=== PATIENT | male | born 1945 | race Caucasian/White ===

== ENCOUNTER 2017-11-03 12:43 | Inpatient (IN) | payer OTHER ==
[~2017-11-03] VITALS: Ht 170.2 cm; Wt 125.2 kg
[2017-11-03 13:19] LABS: BASOPHIL % 0.2 % (0-2); PLATELET COUNT 225 x10^3mcL (130-400); RED CELL DISTRIBUTION WIDTH 13.6 % (11.5-14.5)
[2017-11-03 13:30] LABS: CALCIUM 8.8 mg/dL (8.5-10.1); CARBON DIOXIDE 30.3 mmol/L (21-32); CHLORIDE SERUM 98 mmol/L (98-107); CREATININE SERUM 1.1 mg/dL (0.7-1.3); GFR1 > 60 mL/min; GLUCOSE SERUM 102 mg/dL (74-106); POTASSIUM SERUM 4.5 mmol/L (3.5-5.1); SODIUM SERUM 136 mmol/L (136-145)
[2017-11-03 13:42] LABS: ALKALINE PHOSPHATASE 111 U/L (46-116); ALT/SGPT 19 U/L (16-63); AMYLASE 39 U/L (25-115); AST/SGOT 25 U/L (15-37); BILIRUBIN TOTAL 0.54 mg/dL (0.20-1.00); LIPASE 82 IU/L (73-393); T4(THYROXINE) 7.2 ug/dL (4.7-13.3); TOTAL PROTEIN, SERUM 8.2 g/dL (6.4-8.2)
[2017-11-03 13:55] VITALS: BP 143/94
[2017-11-03 15:27] LABS: UA SPECIFIC GRAVITY 1.025 (1.005-1.035); microscopic required? YES; urine erythrocyte 2+ (NEGATIVE)
[2017-11-03 15:44] LABS: AMPHETAMINE QUAL UR NONE DETECTED (See below)
[2017-11-03 17:04] VITALS: BP 92/53
[2017-11-03] MEDS ORDERED: ASPIRIN ADULT L81 M5 PO (18:39)
[2017-11-03] MEDS ORDERED: DICLOFENAC NA 1% TOP (18:42)
[2017-11-03] MEDS ORDERED: FLUOCINOLONE 0.01% TOP (18:43)
[2017-11-03] MEDS ORDERED: MULTI-VITAMINS1 TAB PO (18:44)
[2017-11-03] MEDS ORDERED: KETOCONAZOLE2% TOP (18:44)
[2017-11-03] MEDS ORDERED: PRILOSEC OTC20 M1 PO (18:46)
[2017-11-03] MEDS ORDERED: GABAPENTIN400 M1 PO (18:46)
[2017-11-03] MEDS ORDERED: OXYCODONE HCL15 M1 PO (18:46)
[2017-11-03] MEDS ORDERED: LAMOTRIGINE25 MG PO (18:47)
[2017-11-03] MEDS ORDERED: ATORVASTATIN CA40 M1 PO (18:47)
[2017-11-03] MEDS ORDERED: ZOL100 (18:49)
[2017-11-03] MEDS ORDERED: ZOLOFT100 MG PO (18:49)
[2017-11-03] MEDS ORDERED: EVAC-U-GEN8.6 M1 PO (18:49)
[2017-11-03] MEDS ORDERED: MELOXICAM15 M1 PO (18:50)
[2017-11-03] MEDS ORDERED: HYDROXYZINE50 M1 PO (18:51)
[2017-11-03] MEDS ORDERED: CYCLOBENZAPRINE5 MG PO (18:52)
[2017-11-03] MEDS ORDERED: DITROPAN XL5 MG PO (18:52)
[2017-11-03] MEDS ORDERED: PRAZOSIN HYDROCH1 MG PO (18:53)
[2017-11-03 20:39] VITALS: BP 103/52
[2017-11-04 05:42] VITALS: BP 141/73
[2017-11-04 07:08] LABS: BASOPHIL % 0.3 % (0-2); PLATELET COUNT 210 x10^3mcL (130-400); RED CELL DISTRIBUTION WIDTH 13.6 % (11.5-14.5)
[2017-11-04 07:10] LABS: ALKALINE PHOSPHATASE 99 U/L (46-116); ALT/SGPT 25 U/L (16-63); AST/SGOT 33 U/L (15-37); BILIRUBIN TOTAL 0.61 mg/dL (0.20-1.00); CALCIUM 8.4 mg/dL (8.5-10.1); CARBON DIOXIDE 29.5 mmol/L (21-32); CHLORIDE SERUM 102 mmol/L (98-107); CREATININE SERUM 0.8 mg/dL (0.7-1.3); GFR1 > 60 mL/min; GLUCOSE SERUM 100 mg/dL (74-106); MAGNESIUM 1.8 mg/dL (1.8-2.4); PHOSPHOROUS 3.7 mg/dL (2.5-4.9); POTASSIUM SERUM 5.1 mmol/L (3.5-5.1); SODIUM SERUM 137 mmol/L (136-145); TOTAL PROTEIN, SERUM 7.7 g/dL (6.4-8.2)
[2017-11-04 07:13] LABS: ALBUMIN 2.6 g/dL (3.4-5.0)
[2017-11-04 10:04] VITALS: BP 135/76
[2017-11-04 13:02] VITALS: BP 140/80; Ht 170.2 cm; Wt 125.2 kg
[2017-11-04 17:33] VITALS: BP 146/72
[2017-11-04 20:55] VITALS: BP 137/80
[2017-11-05 05:39] VITALS: BP 138/81
[2017-11-05 06:55] LABS: BASOPHIL % 0.1 % (0-2); PLATELET COUNT 236 x10^3mcL (130-400); RED CELL DISTRIBUTION WIDTH 12.8 % (11.5-14.5)
[2017-11-05 07:00] LABS: ALKALINE PHOSPHATASE 94 U/L (46-116); ALT/SGPT 22 U/L (16-63); AST/SGOT 25 U/L (15-37); BILIRUBIN TOTAL 0.53 mg/dL (0.20-1.00); CALCIUM 8.7 mg/dL (8.5-10.1); CARBON DIOXIDE 32.5 mmol/L (21-32); CHLORIDE SERUM 100 mmol/L (98-107); GFR1 > 60 mL/min; GLUCOSE SERUM 117 mg/dL (74-106); MAGNESIUM 1.9 mg/dL (1.8-2.4); PHOSPHOROUS 2.7 mg/dL (2.5-4.9); SODIUM SERUM 137 mmol/L (136-145); TOTAL PROTEIN, SERUM 7.8 g/dL (6.4-8.2)
[2017-11-05 07:09] LABS: ALBUMIN 2.7 g/dL (3.4-5.0)
[2017-11-05 08:50] VITALS: BP 116/56
[2017-11-05 12:14] VITALS: BP 131/64
[2017-11-05 16:53] VITALS: BP 140/59
[2017-11-05 17:05] VITALS: BP 140/59
[2017-11-05 21:29] VITALS: BP 139/69
[2017-11-06 04:48] VITALS: BP 133/74
[2017-11-06 09:21] VITALS: BP 106/54
[2017-11-06 13:53] VITALS: BP 127/59
[2017-11-06 17:09] VITALS: BP 150/70
[2017-11-06 21:43] VITALS: BP 134/66
[2017-11-07 05:24] VITALS: BP 99/51
[2017-11-07 09:31] VITALS: BP 106/64
[2017-11-07 13:41] VITALS: BP 138/69
[2017-11-07 15:00] VITALS: BP 138/69
== END 2017-11-07 16:30 | DRG 871 ==
LOC: ED 12:43 → DU 16:05
PROVIDERS: Emergency Medicine; Internal Medicine Pulmonary Disease
DX: A41.9 Sepsis, unspecified organism (principal); G93.41 Metabolic encephalopathy; N39.0 Urinary tract infection, site not specified; Z68.41 Body mass index [BMI] 40.0-44.9, adult; E87.2 Acidosis; E66.2 Morbid (severe) obesity with alveolar hypoventilation; R65.20 Severe sepsis without septic shock; G47.33 Obstructive sleep apnea (adult) (pediatric); L30.9 Dermatitis, unspecified; I10 Essential (primary) hypertension; M54.5 Low back pain; G89.29 Other chronic pain; E78.5 Hyperlipidemia, unspecified; F32.9 Major depressive disorder, single episode, unspecified; E66.01 Morbid (severe) obesity due to excess calories; Z79.891 Long term (current) use of opiate analgesic; Z79.82 Long term (current) use of aspirin; Z79.84 Long term (current) use of oral hypoglycemic drugs; Z79.4 Long term (current) use of insulin
CPT/HCPCS: 36600; 82962; 97110-GP; 97116-GP; 97530-GP; G0480; J1644; J1956; J7030; J7050; Q0092

== ENCOUNTER 2017-12-27 11:42 | Inpatient (IN) | payer OTHER ==
[~2017-12-27] VITALS: Ht 170.2 cm; Wt 125.4 kg
[~2017-12-27 11:42] MED LIST: ASPIRIN ADULT L81 M5 PO; ATORVASTATIN CA40 M1 PO; CYCLOBENZAPRINE5 MG PO; DICLOFENAC NA 1% TOP; DITROPAN XL5 MG PO; EVAC-U-GEN8.6 M1 PO; FLUOCINOLONE 0.01% TOP; GABAPENTIN400 M1 PO; HYDROXYZINE50 M1 PO; KETOCONAZOLE2% TOP; LAMOTRIGINE25 MG PO; MELOXICAM15 M1 PO; MULTI-VITAMINS1 TAB PO; OXYCODONE HCL15 M1 PO; PRAZOSIN HYDROCH1 MG PO; PRILOSEC OTC20 M1 PO; ZOL100; ZOLOFT100 MG PO
[2017-12-27 12:57] LABS: BASOPHIL % 0.5 % (0-2); PLATELET COUNT 189 x10^3mcL (130-400); RED CELL DISTRIBUTION WIDTH 12.8 % (11.5-14.5)
[2017-12-27 13:02] LABS: CALCIUM 8.2 mg/dL (8.5-10.1); CARBON DIOXIDE 33.8 mmol/L (21-32); CHLORIDE SERUM 102 mmol/L (98-107); GFR1 > 60 mL/min; GLUCOSE SERUM 97 mg/dL (74-106); POTASSIUM SERUM 4.2 mmol/L (3.5-5.1); SODIUM SERUM 139 mmol/L (136-145)
[2017-12-27 13:07] LABS: ALKALINE PHOSPHATASE 98 U/L (46-116); ALT/SGPT 29 U/L (16-63); AST/SGOT 30 U/L (15-37); BILIRUBIN TOTAL 0.59 mg/dL (0.20-1.00); TOTAL PROTEIN, SERUM 7.9 g/dL (6.4-8.2)
[2017-12-27 13:08] LABS: ALBUMIN 3.2 g/dL (3.4-5.0)
[2017-12-27 17:47] VITALS: BP 126/61
[2017-12-27 17:51] VITALS: Ht 170.2 cm; Wt 125.4 kg
[2017-12-27 21:01] VITALS: BP 98/65
[2017-12-28 05:12] VITALS: BP 141/67
[2017-12-28 07:49] LABS: BASOPHIL % 0.2 % (0-2); PLATELET COUNT 208 x10^3mcL (130-400); RED CELL DISTRIBUTION WIDTH 13.2 % (11.5-14.5)
[2017-12-28 07:56] LABS: CALCIUM 8.8 mg/dL (8.5-10.1); CARBON DIOXIDE 32.1 mmol/L (21-32); CHLORIDE SERUM 102 mmol/L (98-107); CREATININE SERUM 0.9 mg/dL (0.7-1.3); GFR1 > 60 mL/min; GLUCOSE SERUM 138 mg/dL (74-106); SODIUM SERUM 139 mmol/L (136-145)
[2017-12-28 08:05] LABS: FREE T4 0.96 ng/dL (0.76-1.46); FREE THYROXINE INDEX 2.5 ug/dL (1.4-4.5)
[2017-12-28 08:08] LABS: T3 TOTAL 0.96 ng/mL
[2017-12-28] MEDS ORDERED: OXYBUTYNIN CHLOR5 M2 PO (08:48)
[2017-12-28 08:59] VITALS: BP 128/80
[2017-12-28 12:04] VITALS: BP 141/76
[2017-12-28 12:25] LABS: UA SPECIFIC GRAVITY 1.015 (1.005-1.035); microscopic required? YES; urine erythrocyte TRACE (NEGATIVE)
[2017-12-28 12:43] LABS: AMPHETAMINE QUAL UR NONE DETECTED (See below)
[2017-12-28 15:00] VITALS: BP 141/76
[2017-12-28 16:14] VITALS: BP 144/65
[2017-12-28 22:05] VITALS: BP 139/69
[2017-12-29 04:30] VITALS: BP 156/79
[2017-12-29 06:12] LABS: CALCIUM 8.9 mg/dL (8.5-10.1); CARBON DIOXIDE 30.8 mmol/L (21-32); CHLORIDE SERUM 104 mmol/L (98-107); CREATININE SERUM 0.8 mg/dL (0.7-1.3); GFR1 > 60 mL/min; GLUCOSE SERUM 138 mg/dL (74-106); MAGNESIUM 1.9 mg/dL (1.8-2.4); POTASSIUM SERUM 3.8 mmol/L (3.5-5.1); SODIUM SERUM 141 mmol/L (136-145)
[2017-12-29 07:47] LABS: BASOPHIL % 0.3 % (0-2); PLATELET COUNT 221 x10^3mcL (130-400); RED CELL DISTRIBUTION WIDTH 13.1 % (11.5-14.5)
[2017-12-29 08:45] VITALS: BP 120/62
[2017-12-29 13:30] VITALS: BP 147/81
== END 2017-12-29 17:49 | disposition home health service (06) | DRG 92 ==
LOC: ED 11:42 → DU 15:52
PROVIDERS: Emergency Medicine; Internal Medicine Pulmonary Disease
DX: G92 Toxic encephalopathy (principal); N39.0 Urinary tract infection, site not specified; T43.595A Adverse effect of other antipsychotics and neuroleptics, initial encounter; F43.10 Post-traumatic stress disorder, unspecified; I10 Essential (primary) hypertension; M54.5 Low back pain; G89.29 Other chronic pain; F41.8 Other specified anxiety disorders; M19.90 Unspecified osteoarthritis, unspecified site; R32 Unspecified urinary incontinence; Z87.891 Personal history of nicotine dependence; Y92.018 Other place in single-family (private) house as the place of occurrence of the external cause
CPT/HCPCS: 82962; 84439; 97110-GP; 97116-GP; 97530-GP; J1644; J7042; Q0092